=== PATIENT | male | born 1955 | race Caucasian/White ===

== ENCOUNTER → 2018-08-31 | Day surgery (SDC) | payer BC ==
[~2018-08-31] MED LIST: ACETAMINOPHEN 1000 MG/100 ML 100 ML IV ONE; ARTHRITIS MED PO; DEXAMETHASONE SOD PHOS INJ 4 MG/ML VIAL ONE; FENTANYL CITRATE/PF 100MCG/2 ML INJ ONE; IBUPROFEN400 MG PO; IOPAMIDOL 610MG/1ML 300 MG/ML VIAL IV ONE; LEVOFLOXACIN 500MG/D5W 100ML 100 ML IV ONE; LIDOCAINE HCL 2% LOCAL INJ 5 ML SDV VIAL INJ ONE; MIDAZOLAM HCL 2 MG/2 ML VIAL ONE; ONDANSETRON HCL INJ 2 MG/ML VIAL ONE; PROPOFOL IV EMULSION 10 MG/ML 20 ML VIAL ONE; SEVOFLURANE INHAL SOLN 250 ML PEN BTL ONE
--- OUTSIDE RECORDS SUMMARY | 2018-08-31 07:35 | XMS REPORT | Clinical Summary ---
Author Author [facility] Address Unknown Phone Unavailable Care Team Providers Care Hl7 Developer Name Role Phone Wallace Leon MD PCP Allergies No Known Allergies Medications End Date Status Medication Sig Dispensed Refills Start Date 09/16/2017 Discontinued ibuprofen (ADVIL,MOTRIN) Take 200 mg 0 200 MG tablet by mouth as needed for mild pain. 12/15/2017 meloxicam (MOBIC) 15 mg Take 1 tablet 90 tablet 3 tablet (15 mg total) 7 by mouth daily for 90 doses. 12/02/2017 sodium,potassium,mag Take 2 2 Bottle 0 sulfates 17.5-3.13-1.6 Bottles by 8 gram recon soln mouth once for 1 dose. 08/24/2018 meloxicam (MOBIC) 15 mg Take 1 tablet 90 tablet 3 tablet (15 mg total) 8 by mouth daily for 90 doses. Active Problems Problem Noted Date Chronic pain of both knees 05/26/2018 Obesity (BMI 36.52) 05/26/2018 Primary osteoarthritis of knees, bilateral 09/16/2017 Encounters Care Team Description Date Type Specialty Shar Marie MD Enlarged prostate with urinary obstruction 08/16/2018 Hospital Radiology Encounter Shar Marie MD Enlarged prostate with urinary obstruction (Primary Dx) 07/21/2018 Transcribe Access Orders Arnold Ballard MD Primary osteoarthritis of knees, bilateral (Primary Dx); Chronic pain of both knees; Obesity (BMI 36.52) 05/26/2018 Office Visit Orthopedic Surgery Jose Dai MD 12/14/2017 Anesthesia Gastroenterology Event Xavier Timmons MD COLONOSCOPY w/ biopsy and clip 12/14/2017 Surgery Gastroenterology Xavier Timmons MD Screen for colon cancer (Primary Dx); Colon cancer screening 12/14/2017 Hospital Gastroenterology Encounter Xavier Timmons MD Colon cancer screening (Primary Dx) 12/02/2017 Office Visit Gastroenterology Arnold Ballard MD Primary osteoarthritis of knees, bilateral (Primary Dx) 09/16/2017 Office Visit Orthopedic Surgery after 08/30/2017 Family History Medical History Relation Name Comments Lung cancer Father Brain cancer Mother Heart disease Mother Relation Name Status Comments Father Mother Alive Social History Date Tobacco Use Types Packs/Day Years Used Light Tobacco Smoker 1 Smokeless Tobacco: Never Used Comments: A PACK A WEEK Alcohol Use Drinks/Week oz/Week Comments Yes SOCIAL Sex Assigned at Date Recorded Not on file Industry Job Start Date Occupation Not on file Not on file Not on file Travel End Travel History Travel Start No recent travel history available. Last Filed Vital Signs Time Taken Vital Sign Reading 12/14/2017 11:41 AM CDT Blood Pressure 109/74 12/14/2017 11:41 AM CDT Pulse 76 12/14/2017 11:11 AM CDT Temperature 36.7 C (98.1 F) 12/14/2017 11:41 AM CDT Respiratory Rate 10 12/14/2017 11:41 AM CDT Oxygen Saturation 95% - Inhaled Oxygen - Concentration 05/26/2018 12:57 PM CDT Weight 143 kg (316 lb) 05/26/2018 12:57 PM CDT Height 198.1 cm (6' 6") 05/26/2018 12:57 PM CDT Body Mass Index 36.52 Plan of Treatment Health Maintenance Due Date Last Done Comments COLON CANCER SCREENING 2006 SHINGRIX VACCINE (1 of 2) 2006 ZOSTER VACCINE 2016 INFLUENZA VACCINE 04/20/2018 Implants Device Identifier Shelf Expiration Date Model / Serial / Lot Implanted Type Area Manufactur er [id number] / / Clip Resolution 360 Mr Cndtl 235cm Surgical N/A: N/A BSC 2.8mm 11mm Opening - [id number] Implants; ENDOSCOPY Implanted: 12/14/2017 (Quantity not Expanders; on file) Extenders; Surgical Wires Procedures Comments Procedure Name Priority Date/Time Associated Diagnosis US PROSTATE Routine 08/16/2018 Enlarged prostate with 1:41 PM ADULT AND PEDIATRIC NEUROLOGIST urinary obstruction CO ARTHROCENTESIS Routine 05/26/2018 Chronic pain of both ASPIR&/INJ MAJOR JT/BURSA 4:00 PM CDT knees W/O US SURGICAL PATHOLOGY Routine 12/14/2017 REQUEST 12:40 PM CDT COLONOSCOPY 12/14/2017 Colon cancer screening 10:30 AM CDT CO ARTHROCENTESIS Routine 09/17/2017 Primary osteoarthritis of ASPIR&/INJ MAJOR JT/BURSA 3:08 PM ADULT AND PEDIATRIC NEUROLOGIST knees, bilateral W/O US XR KNEE 3 VW BILATERAL Routine 09/16/2017 Primary osteoarthritis of 3:23 PM ADULT AND PEDIATRIC NEUROLOGIST knees, bilateral after 08/30/2017 Results * US Prostate (08/16/2018 1:41 PM ADULT AND PEDIATRIC NEUROLOGIST) Narrative Performed At PROCEDURE:US PROSTATE [facility] CLINICAL HISTORY:N40.1 Benign prostatic hyperplasia with lower urinary tract symptoms, N13.8 Other obstructive and reflux uropathy, N40.1 COMPARISON:None. TECHNIQUE: A transrectal examination of the prostate gland was performed in transverse and sagittal views with color-flow Doppler interrogation. The seminal vesicles were also interrogated. FINDINGS: The prostate gland measures 5.7 x 5.9 x 3.4 cm, for an estimated volume of 59.3 cc. The prostatic parenchyma is heterogeneous in echotexture. There is no focal lesion identified within the limitations of sonographic technique. There is no gross abnormality of the visualized seminal vesicles. IMPRESSION: Prostatomegaly, likely related to benign prostatic hyperplasia. No focal lesion identified. [facility]-[id number] Procedure Note Interface, Radiology Results [facility] - 08/16/2018 4:46 PM ADULT AND PEDIATRIC NEUROLOGIST PROCEDURE: US PROSTATE CLINICAL HISTORY: N40.1 Benign prostatic hyperplasia with lower urinary tract symptoms, N13.8 Other obstructive and reflux uropathy, N40.1 COMPARISON: None. TECHNIQUE: A transrectal examination of the prostate gland was performed in transverse and sagittal views with color-flow Doppler interrogation. The seminal vesicles were also interrogated. FINDINGS: The prostate gland measures 5.7 x 5.9 x 3.4 cm, for an estimated volume of 59.3 cc. The prostatic parenchyma is heterogeneous in echotexture. There is no focal lesion identified within the limitations of sonographic technique. There is no gross abnormality of the visualized seminal vesicles. IMPRESSION: Prostatomegaly, likely related to benign prostatic hyperplasia. No focal lesion identified. [facility]-[id number] Performing Organization Address City/State/Zipcode Phone Number [facility] [address] [place] [address] * Large Joint Arthrocentesis (05/26/2018 4:00 PM CDT) Narrative Performed At Arnold Ballard MD 05/26/20181:31 PM Large Joint Arthrocentesis Consent given by: patient Site marked: site marked Supporting Documentation Indications: pain Procedure Details Preparation: Patient was prepped and draped in the usual sterile fashion Location: knee - Bilateral knee Right side: Needle size: 22 G Approach: anterolateral Right knee medications administered: 80 mg methylPREDNISolone acetate 40 mg/mL; 3 mL lidocaine 10 mg/mL (1 %) Patient tolerance: patient tolerated the procedure well with no immediate complications Left side: Needle size: 22 G Approach: anterolateral Left knee medications administered: 80 mg methylPREDNISolone acetate 40 mg/mL; 3 mL lidocaine 10 mg/mL (1 %) Patient tolerance: patient tolerated the procedure well with no immediate complications * Surgical pathology request (12/14/2017 12:40 PM CDT) [facility] DEPARTMENT OF PATHOLOGY AND GENOMIC MEDICINE Surgical pathology report See link below for PDF Lab [facility] DEPARTMENT OF Report PATHOLOGY AND GENOMIC MEDICINE Result status This is Final Report to [facility] DEPARTMENT OF [id number] PATHOLOGY AND GENOMIC MEDICINE Performing Organization Address City/[facility]/Zipcode Phone Number [facility] DEPARTMENT [address] [address] PATHOLOGY AND GENOMIC MEDICINE * Large Joint Arthrocentesis (09/17/2017 3:08 PM ADULT AND PEDIATRIC NEUROLOGIST) Narrative Performed At Arnold Ballard MD 09/17/20173:08 PM Large Joint Arthrocentesis Consent given by: patient Site marked: site marked Supporting Documentation Indications: pain Procedure Details Ultrasound guided: no Location: knee - Bilateral knee Right side: Needle size: 20 G Approach: anteromedial Right knee medications administered: 3 mL lidocaine 10 mg/mL (1 %); 80 mg methylPREDNISolone acetate 80 mg/mL Left side: Needle size: 20 G Approach: anterolateral Left knee medications administered: 80 mg methylPREDNISolone acetate 80 mg/mL; 3 mL lidocaine 10 mg/mL (1 %) * XR Knee 3 Vw Bilateral (09/16/2017 3:23 PM ADULT AND PEDIATRIC NEUROLOGIST) Narrative Performed At [facility] Standing x-rays of the knees and lateral x-rays show severe bilateral arthritis in the patellofemoral joints and medial compartments. Left knee slightly worse than right Performing Organization Address City/State/Zipcode Phone Number [facility] [address] [place] [address] after 08/30/2017 Insurance Payer Benefit Subscriber ID Type Phone Address Plan / Group BCBS BCBS xxxxxxxxxxxxxx PPO CHOICE PPO/PRERNA BLACKWELL PPO Advance Directives Patient has advance care planning documents on file. For more information, deep mason contact: Mickey Agustin [address] [place] [address]
--- OUTSIDE RECORDS SUMMARY | 2018-08-31 07:36 | XMS REPORT | Continuity of Care Document ---
Author Author [facility] Organization [facility] Address Unknown Phone Unavailable Care Team Providers Care Community Outreach Advocate Name Role Phone MD Edward, Wallace HERBERT Unavailable Insurance Providers Payer name Policy type / Coverage type Policy ID Covered democrat ID Policy Santana [facility] CHOICE [facility] Encounters Encounter Performer Location Date Lab Report Wallace Leon MD [facility] Jun 18, 2014 Problems Problem Effective Dates Problem Status FATIGUE May 06, 2014 Active SCREENING FOR MALIGNANT NEOPLASMS OF COLON May 06, 2014 Active OBESITY May 06, 2014 Active BODY MASS INDEX 45.0-49.9, ADULT May 06, 2014 Active 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, 2014 Active HYPERLIPIDEMIA May 29, 2014 Active TOBACCO USER May 29, 2014 Active DYSURIA May 29, 2014 Active UNSPECIFIED SUPPURATIVE OTITIS MEDIA Jun 11, 2014 Active Procedures Date Description Comments May 06, 2014 smoking status Current some day smoker May 06, 2014 smoking/tobacco cessation, patient education and counseling yes Medications Medication Instructions Start Date Status PRAVASTATIN SODIUM 20 MG TABS 1 tab po daily May 29, 2014 Active ANDROGEL PUMP 20.25 MG/ACT (1.62%) GEL 1 pump applied to each upper arm every morning May 29, 2014 Active SULFAMETHOXAZOLE-TMP DS 800-160 MG TABS 1 tab po bid x 5 days Jun 04, 2014 Inactive AMOXICILLIN 500 MG TABS 1 tab po bid x 10 days Jun 11, 2014 Active ANTIPYRINE-BENZOCAINE 5.4-1.4 % SOLN 3 drops to affected ear tid Jun 11, 2014 Active Vital Signs Date Description Test Result May 06, 2014 weight E&M - 3141-9 WEIGHT 383 lb May 06, 2014 height E&M - 8302-2 HEIGHT 77 in May 06, 2014 respiratory rate E&M - 9279-1 RESP RATE 18 /min May 06, 2014 temperature E&M TEMPERATURE 97.9 deg f May 06, 2014 pulse rate E&M - 8867-4 PULSE RATE 84 /min May 06, 2014 blood pressure, systolic - 8480-6 BP SYSTOLIC 111 mm Hg May 06, 2014 blood pressure, diastolic - 8462-4 BP DIASTOLIC 76 mm Hg May 29, 2014 weight E&M - 3141-9 WEIGHT 383.44 lb May 29, 2014 temperature E&M TEMPERATURE 96.5 deg f May 29, 2014 respiratory rate E&M - 9279-1 RESP RATE 18 /min May 29, 2014 pulse rate E&M - 8867-4 PULSE RATE 75 /min May 29, 2014 blood pressure, systolic - 8480-6 BP SYSTOLIC 140 mm Hg May 29, 2014 blood pressure, diastolic - 8462-4 BP DIASTOLIC 73 mm Hg Jun 11, 2014 height E&M - 8302-2 HEIGHT 77 in Jun 11, 2014 weight E&M - 3141-9 WEIGHT 383 lb Jun 11, 2014 blood pressure, systolic - 8480-6 BP SYSTOLIC 127 mm Hg Jun 11, 2014 blood pressure, diastolic - 8462-4 BP DIASTOLIC 71 mm Hg Jun 11, 2014 pulse rate E&M - 8867-4 PULSE RATE 93 /min Jun 11, 2014 temperature E&M TEMPERATURE 98.5 deg f Jun 11, 2014 respiratory rate E&M - 9279-1 RESP RATE 18 /min Results Date Description Test Name Value Reference Interpretation Status May 06, 2014 hemoglobin, blood HGB 16.1 g/dL 14.0-18.0 May 06, 2014 hematocrit, blood HCT 46.7 % 42.0-54.0 May 06, 2014 platelet count PLATELETS 250 K/CMM /mm3 133-450 May 29, 2014 urine color UA COLOR Yellow null Yellow May 29, 2014 bacteria, urine microscopy BACTERIA URN Occasional null None Seen May 06, 2014 hemoglobin A1C, blood, as % of total hemoglobin HGBA1C 5.5 % <=5.6 May 06, 2014 thyroid stimulating hormone, serum TSH 1.500 uIU/mL 0.360-3.740 May 06, 2014 sodium, serum SODIUM 140 MEQ/L mmol/L 135-145 May 06, 2014 potassium, serum POTASSIUM 4.6 MEQ/L mmol/L 3.5-5.1 May 06, 2014 creatinine, serum CREATININE 1.0 mg/dL 0.5-1.4 May 06, 2014 urea nitrogen, blood BUN 15 mg/dL 7-May 06, 2014 urea nitrogen/creatinine ratio, serum BUN/CREAT 15 null 6-25 May 06, 2014 albumin, serum ALBUMIN 3.7 g/dL 3.5-5.0 May 06, 2014 calcium, serum CALCIUM 8.5 mg/dL 8.5-10.5 May 06, 2014 alanine aminotransferase (SGPT), serum SGPT (ALT) 27 U/L 0-65 May 06, 2014 aspartate aminotransferase (SGOT), serum SGOT (AST) 14 U/L 0-37 May 06, 2014 alkaline phosphatase, serum ALK PHOS 54 U/L 39-136 May 08, 2014 cholesterol, serum CHOLESTEROL 215 mg/dl <=199 High May 08, 2014 triglyceride, serum, fasting TRIGLYCERIDE 159 mg/dl <=149 High May 08, 2014 HDL cholesterol, serum HDL 45 mg/dl >=61 Low May 08, 2014 LDL cholesterol, serum LDL 138 mg/dl <=99 High May 08, 2014 testosterone, total TESTO, TOTAL 180 ng/dL 241-827 Low May 29, 2014 prostate specific antigen PSA 0.47 ng/mL 0.00-4.00 Jun 18, 2014 testosterone, total TESTO, TOTAL 215 ng/dL 241-827 Low
--- OUTSIDE RECORDS SUMMARY | 2018-08-31 07:36 | XMS REPORT | Continuity of Care Document ---
Author Author [facility] Organization [facility] Address Unknown Phone Unavailable Care Team Providers Care Electromedical Equipment Repairer Name Role Phone MD Edward, Wallace HERBERT Unavailable Insurance Providers Payer name Policy type / Coverage type Policy ID Covered alliance party ID Policy Santana [facility] Encounters Encounter Performer Location Date Office Visit Wallace Leon MD [facility] May 06, 2014 Problems Problem Effective Dates Problem Status FATIGUE May 06, 2014 Active SCREENING FOR MALIGNANT NEOPLASMS OF COLON May 06, 2014 Active OBESITY May 06, 2014 Active BODY MASS INDEX 45.0-49.9, ADULT May 06, 2014 Active Procedures Date Description Comments May 06, 2014 smoking status Current some day smoker May 06, 2014 smoking/tobacco cessation, patient education and counseling yes Vital Signs Date Description Test Result May 06, 2014 weight E&M WEIGHT 383 lb May 06, 2014 height E&M HEIGHT 77 in May 06, 2014 respiratory rate E&M RESP RATE 18 /min May 06, 2014 temperature E&M TEMPERATURE 97.9 deg f May 06, 2014 pulse rate E&M PULSE RATE 84 /min May 06, 2014 blood pressure, systolic BP SYSTOLIC 111 mm Hg May 06, 2014 blood pressure, diastolic BP DIASTOLIC 76 mm Hg Results Date Description Test Name Value Reference Interpretation Status May 06, 2014 hemoglobin, blood HGB 16.1 g/dL 14.0-18.0 May 06, 2014 hematocrit, blood HCT 46.7 % 42.0-54.0 May 06, 2014 platelet count PLATELETS 250 K/CMM /mm3 133-450 May 06, 2014 hemoglobin A1C, blood, as [...] 2014 urea nitrogen, blood BUN 15 mg/dL 7-22 May 06, 2014 urea nitrogen/creatinine ratio, serum BUN/CREAT [...]
--- OUTSIDE RECORDS SUMMARY | 2018-08-31 07:36 | XMS REPORT | Continuity of Care Document ---
Author Author [facility] Organization [facility] Address Unknown Phone Unavailable Care Team Providers Care Registered Nurse Nursery Name Role Phone MD Edward, Wallace HERBERT Unavailable Insurance Providers Payer name Policy type / Coverage type Policy ID Covered constitution party ID Policy Santana [facility] Encounters Encounter Performer Location Date Lab Report Wallace Leon MD [facility] May 06, 2014 Problems Problem Effective Dates [...]
--- OUTSIDE RECORDS SUMMARY | 2018-08-31 07:36 | XMS REPORT | Continuity of Care Document ---
Author Author [facility] Organization [facility] Address Unknown Phone Unavailable Care Team Providers Care Swing Tender Name Role Phone MD Edward, Wallace HERBERT Unavailable Insurance Providers Payer name Policy type / Coverage type Policy ID Covered democrat ID Policy Santana [facility] Encounters Encounter Performer Location Date Lab Report Wallace Leon MD [facility] May 29, 2014 Problems Problem Effective Dates Problem Status FATIGUE May 06, 2014 Active SCREENING FOR MALIGNANT NEOPLASMS OF COLON May 06, 2014 Active OBESITY May 06, 2014 Active BODY MASS INDEX 45.0-49.9, ADULT May 06, 2014 Active 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
--- OUTSIDE RECORDS SUMMARY | 2018-08-31 07:36 | XMS REPORT | Continuity of Care Document ---
Author Author [facility] Organization [facility] Address Unknown Phone Unavailable Care Team Providers Care Network Program Manager Name Role Phone MD Edward, Wallace HERBERT Unavailable Insurance Providers Payer name Policy type / Coverage type Policy ID Covered democrat ID Policy Santana [facility] CHOICE [facility] Encounters Encounter Performer Location Date Office Visit Wallace Leon MD [facility] May 29, 2014 Problems Problem Effective [...] arm every morning May 29, 2014 Active Vital Signs Date Description Test [...]
--- OUTSIDE RECORDS SUMMARY | 2018-08-31 07:36 | XMS REPORT | Continuity of Care Document ---
Author Author [facility] Organization [facility] Address Unknown Phone Unavailable Care Team Providers Care Loom Winder Tender Name Role Phone ADEEL Robins, Bia HERBERT Unavailable Insurance Providers Payer name Policy type / Coverage type Policy ID Covered constitution party ID Policy Santana [facility] *SELF PAY* [facility] SLIDING FEE SCHEDULE - DISCOUNT [facility] Encounters Encounter Performer Location Date Office Visit Bia Robins APRN [facility] Aug 15, 2014 Problems Problem Effective Dates Problem Status [...] smoking/tobacco cessation, patient education and counseling yes Aug 15, 2014 smoking status Current every day smoker Aug 15, 2014 smoking/tobacco cessation, patient education and counseling [...] bid x 10 days Jun 11, 2014 Inactive ANTIPYRINE-BENZOCAINE 5.4-1.4 % SOLN 3 drops to affected ear tid Jun 11, 2014 Inactive ANTIPYRINE-BENZOCAINE 5.4-1.4 % SOLN Instill 2-4 drops in affected ear every 6 hours. Aug 15, 2014 Inactive CEFDINIR 300 MG CAPS 1 capsule twice a day for 10 days Aug 15, 2014 Inactive Vital Signs Date Description Test Result May [...] E&M - 9279-1 RESP RATE 18 /min Aug 15, 2014 height E&M - 8302-2 HEIGHT 77 in Aug 15, 2014 weight E&M - 3141-9 WEIGHT 376 lb Aug 15, 2014 respiratory rate E&M - 9279-1 RESP RATE 20 /min Aug 15, 2014 blood pressure, systolic - 8480-6 BP SYSTOLIC 138 mm Hg Aug 15, 2014 blood pressure, diastolic - 8462-4 BP DIASTOLIC 81 mm Hg Aug 15, 2014 pulse rate E&M - 8867-4 PULSE RATE 105 /min Aug 15, 2014 temperature E&M TEMPERATURE 96.7 deg f Results Date Description Test Name Value Reference [...]
--- OUTSIDE RECORDS SUMMARY | 2018-08-31 07:36 | XMS REPORT | Continuity of Care Document ---
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 HYPERLIPIDEMIA Active 05/29/2014 Condition 08/15/2014 [facility] TOBACCO USER Active 05/29/2014 Condition 08/15/2014 [facility] DYSURIA Active 05/29/2014 Condition 08/15/2014 [facility] FATIGUE Active 05/06/2014 Condition 08/15/2014 [facility] SCREENING FOR MALIGNANT NEOPLASMS OF COLON Active 05/06/2014 Condition 08/15/2014 [facility] OBESITY Active 05/06/2014 Condition 08/15/2014 [facility] BODY MASS INDEX 45.0-49.9, ADULT Active 05/06/2014 Condition 08/15/2014 [facility] Medications Medication Details Route Status Patient Instructions Ordering Provider Order Date Source ANTIPYRINE-BENZOCAINE 5.4-1.4 % SOLN Instill 2-4 drops in affected ear every 6 hours. No Longer Active 08/15/2014 [facility] CEFDINIR 300 MG CAPS 1 capsule twice a day for 10 days No Longer Active 08/15/2014 [facility] AMOXICILLIN 500 MG TABS 1 tab po bid x 10 days No Longer Active 06/11/2014 [facility] ANTIPYRINE-BENZOCAINE 5.4-1.4 % SOLN 3 drops to affected ear tid No Longer Active 06/11/2014 [facility] SULFAMETHOXAZOLE-TMP DS 800-160 MG TABS 1 tab po bid x 5 days No Longer Active 06/04/2014 [facility] SULFAMETHOXAZOLE-TMP DS 800-160 MG TABS 1 tab po bid x 5 days No Longer Active 06/04/2014 [facility] PRAVASTATIN SODIUM 20 MG TABS 1 tab po daily Active 05/29/2014 [facility] ANDROGEL PUMP 20.25 MG/ACT (1.62%) GEL 1 pump applied to each upper arm every morning Active 05/29/2014 [facility] Allergies, Adverse Reactions, Alerts Substance Category Reaction Severity Reaction type Status Date Reported Comments Source Immunizations Immunization Date Given Site Status Last Updated Comments Source Results Order Name Results Value Reference Range Date Interpretation Comments Source Chemistry TESTO, TOTAL 215 ng/dL 241 - 827 06/18/2014 [facility] Chemistry PSA 0.47 ng/mL 0.00 - 4.00 05/29/2014 [facility] Urinalysis UA COLOR Yellow 05/29/2014 [facility] Urinalysis BACTERIA URN Occasional 05/29/2014 [facility] CHOLESTEROL 215 mg/dl - 199 05/08/2014 [facility] TRIGLYCERIDE 159 mg/dl - 149 05/08/2014 [facility] Chemistry CHOLESTEROL 215 mg/dl - 199 05/08/2014 [facility] Chemistry TRIGLYCERIDE 159 mg/dl - 149 05/08/2014 [facility] Chemistry HDL 45 mg/dl >=61 05/08/2014 [facility] Chemistry LDL 138 mg/dl - 99 05/08/2014 [facility] Chemistry TESTO, TOTAL 180 ng/dL 241 - 827 05/08/2014 [facility] Chemistry HGBA1C 5.5 % - 5.6 05/06/2014 [facility] Chemistry HGBA1C 5.5 % - 5.6 05/06/2014 [facility] TSH 1.500 uIU/mL 0.360 - 3.740 05/06/2014 [facility] Chemistry SODIUM 140 MEQ/L mmol/L 135 - 145 05/06/2014 [facility] Chemistry TSH 1.500 uIU/mL 0.360 - 3.740 05/06/2014 [facility] Chemistry SODIUM 140 MEQ/L mmol/L 135 - 145 05/06/2014 [facility] Chemistry POTASSIUM 4.6 MEQ/L mmol/L 3.5 - 5.1 05/06/2014 [facility] Chemistry CREATININE 1.0 mg/dL 0.5 - 1.4 05/06/2014 [facility] Chemistry BUN 15 mg/dL 7 - 22 05/06/2014 [facility] Chemistry BUN/CREAT 15 6 - 25 05/06/2014 [facility] Chemistry ALBUMIN 3.7 g/dL 3.5 - 5.0 05/06/2014 [facility] Chemistry CALCIUM 8.5 mg/dL 8.5 - 10.5 05/06/2014 [facility] Chemistry SGPT (ALT) 27 U/L 0 - 65 05/06/2014 [facility] Chemistry SGOT (AST) 14 U/L 0 - 37 05/06/2014 [facility] Chemistry ALK PHOS 54 U/L 39 - 136 05/06/2014 [facility] Hematology HGB 16.1 g/dL 14.0 - 18.0 05/06/2014 [facility] Hematology HCT 46.7 % 42.0 - 54.0 05/06/2014 [facility] H[facility]ology PLATELETS 250 K/CMM /mm3 133 - 450 05/06/2014 [facility] Vital Signs Vital Sign Value Date Comments Source Height 77 08/15/2014 [facility] Weight 376 08/15/2014 [facility] Respitory Rate 20 08/15/2014 [facility] Systolic (mm Hg) 138 08/15/2014 [facility] Diastolic (mm Hg) 81 08/15/2014 [facility] Heart Rate 105 08/15/2014 [facility] Temperature Oral (F) 96.7 F 08/15/2014 [facility] Height 77 06/11/2014 [facility] Weight 383 06/11/2014 [facility] Systolic (mm Hg) 127 06/11/2014 [facility] Diastolic (mm Hg) 71 06/11/2014 [facility] Heart Rate 93 06/11/2014 [facility] Temperature Oral (F) 98.5 F 06/11/2014 [facility] Respitory Rate 18 06/11/2014 [facility] Weight 383.44 05/29/2014 [facility] Temperature Oral (F) 96.5 F 05/29/2014 [facility] Respitory Rate 18 05/29/2014 [facility] Heart Rate 75 05/29/2014 [facility] Systolic (mm Hg) 140 05/29/2014 [facility] Diastolic (mm Hg) 73 05/29/2014 [facility] Weight 383 05/06/2014 [facility] Height 77 05/06/2014 [facility] Respitory Rate 18 05/06/2014 [facility] Temperature Oral (F) 97.9 F 05/06/2014 [facility] Heart Rate 84 05/06/2014 [facility] Systolic (mm Hg) 111 05/06/2014 [facility] Diastolic (mm Hg) 76 05/06/2014 [facility] Encounters Location Location Details Encounter Type Encounter Number Reason For Visit Attending Provider ADM Date DC Date Status Source [facility] Lab Report [id number] Wallace Leon MD 05/06/2014 05/06/2014 [facility] Office Visit [id number] Wallace Leon MD 05/06/2014 05/06/2014 [facility] Lab Report [id number] Wallace Leon MD 05/08/2014 05/08/2014 [facility] Office Visit [id number] Wallace Leon MD 05/29/2014 05/29/2014 [facility] Lab Report [id number] Wallace Leon MD 05/29/2014 05/29/2014 [facility] Office Visit [id number] Wallace Leon MD 06/11/2014 06/11/2014 [facility] Lab Report [id number] Wallace Leon MD 06/18/2014 06/18/2014 [facility] Office Visit [id number] Bia Robins APRN 08/15/2014 08/15/2014 [facility] Procedures Procedure Code Date Perfomer Comments Source smoking/tobacco cessation, patient education and counseling 14 08/15/2014 yes [facility] smoking/tobacco cessation, patient education and counseling 14 05/06/2014 yes [facility]
--- OUTSIDE RECORDS SUMMARY | 2018-08-31 07:36 | XMS REPORT | Continuity of Care Document ---
Author Author [facility] Organization [facility] Address Unknown Phone Unavailable Care Team Providers Care Sexual Assault Counsellor Name Role Phone MD Edward, Wallace HERBERT Unavailable Insurance Providers Payer name Policy type / Coverage type Policy ID Covered alliance party ID Policy Santana [facility] CHO[facility] Encounters Encounter Performer Location Date Office Visit Wallace Leon MD [facility] Jun 11, 2014 Problems Problem Effective Dates Problem Status [...]
--- OUTSIDE RECORDS SUMMARY | 2018-08-31 07:36 | XMS REPORT | Continuity of Care Document ---
Author Author [facility] Organization [facility] Address Unknown Phone Unavailable Care Team Providers Care Crop Specialist Name Role Phone MD Edward, Wallace HERBERT Unavailable Insurance Providers Payer name Policy type / Coverage type Policy ID Covered republican ID Policy Santana [facility] Encounters Encounter Performer Location Date Lab Report Wallace Leon MD [facility] May 08, 2014 Problems Problem Effective Dates Problem Status [...]
--- NOTE | 2018-08-31 10:53 | Operative Report ---
DATE OF PROCEDURE: August 31, 2018 PREOPERATIVE DIAGNOSES 1. Benign prostatic hypertrophy. 2. [employer] score 22. 3. Prostate-specific antigen 0.87. POSTOPERATIVE DIAGNOSES 1. Benign prostatic hypertrophy. 2. [employer] score 22. 3. Prostate-specific antigen 0.87. OPERATIONS PERFORMED: Cystourethroscopy and retrograde pyelogram. FUNERAL DRIVER: Dr. Sascha Oliveira. ANESTHETIC: General. Mr. Martinez is a 63-year-old male who presented with a chief complaint of significant lower urinary tract obstructive symptoms. Rectal exam showed an enlarged prostate gland about 40 to 50 g, smooth, firm and benign. His PSA was 0.87. His AUA score was 22. This patient was placed on the table in the lithotomy position and was prepped and draped in a sterile manner after satisfactory anesthesia. A number 23-Romansh cystoscope was used, and cystourethroscopy was performed and it was noted that the urethra had a urethral stricture at the distal bulbous urethra. After some negotiation, was able to pass it without any difficulty. The prostatic urethra was about 3.5 cm long, bilobar and occlusive. There was a small median lobe. Cystoscopy was then performed using both the right-angle and the Foroblique lens, and it was noted that the bladder mucosa was normal with no evidence of gross tumor, pathology or any papillary lesions. Both ureteral orifices were seen and were within normal position, configuration, efflux. The bladder wall was moderately trabeculated. Right retrograde pyelogram was then performed using a number 8 bulb-tipped ureteral catheter inserted at the right ureteral orifice, and 5 mL of contrast material was injected. The retrograde performed was normal. Left retrograde pyelogram was performed similarly and was normal. The bladder was drained, cystoscope removed, and patient taken to the recovery room in satisfactory condition after tolerating the procedure well. Plans for this patient are to be placed on Levaquin 500 mg once a day for 5 days. Ultracet tablet 1 every 6 to 8 hours p.r.n. and was given 15. He is to return to the office in 2 weeks when at that time plans will be made for cystoscopy and TURP laser. Job#: [id number]
[2018-08-31 11:05] VITALS: BP 112/75
== END | disposition home or self-care (01) ==
LOC: OR 07:32
PROVIDERS: ATTEND Specialist
DX: N40.1 Benign prostatic hyperplasia with lower urinary tract symptoms (principal); N13.8 Other obstructive and reflux uropathy; N35.912 Unspecified bulbous urethral stricture, male; N32.89 Other specified disorders of bladder; G62.9 Polyneuropathy, unspecified; M17.0 Bilateral primary osteoarthritis of knee; F17.210 Nicotine dependence, cigarettes, uncomplicated; Z79.82 Long term (current) use of aspirin
CPT/HCPCS: 52005; 74420; 93005; C1758; J0131; J1100; J1956; J2001; J2250; J2405; J2704; Q9967